=== PATIENT | male | born 1980 | race Caucasian/White ===

== ENCOUNTER 2017-09-15 14:13 | Inpatient (IN) | payer MEDICAID ==
[~2017-09-15] VITALS: Ht 182.9 cm; Wt 81.6 kg
[~2017-09-15 14:13] MED LIST: AMOX-559 PO; CLON0.1T14 PO; DUL100/5PT INH; HYDR50CA48 PO; LISI5TAB25 PO; METH-543 PO; METO25TA93 PO; MULT-1335 PO; MULT-1379 PO; NEOM1PAC11 TP; OXYC-865 PO; PRED-1 PO; TRAZ150T8 PO
[2017-09-15] MEDS ORDERED: MAG HYD/AL HYD/SIMETH 30ML UDC PO PRN (16:05)
[2017-09-15] MEDS: DIAZEPAM 20 MG PER CIWA PROTOCOL PO PRN ×4 (17:00→23:22)
[2017-09-15 17:02] VITALS: BP 120/110
[2017-09-15 19:28] VITALS: BP 125/100
--- NOTE | 2017-09-15 20:14 | BHS - Psychiatric Evaluation ---
ER - Title 25 MHE Evaluation Title 25 Evaluation Patient Detained By: Physician (Dr. Chowdhury) Referral Source: Professional: Dr. Chowdhury Date Patient Detained: Sep 15, 2017 Time Patient Detained: 12:50 Date Custodial Expires: Sep 18, 2017 Time Custodial Expires: 12:50 Legal Status: Police Hold: No Legal Status: Residence: [facility] Resident, State Resident Assessment Data Provided By: Patient, Other Source (ER Doctor) HPI/ROS: Patient arrives to the ER because he has had multiple seizures, collateral report of 1 seizure in [facility] yesterday and one seizure during release from [facility]. He was agitated in the ER and had an altered mental status. Admit due to SI or Attempt: No Suicide Plan: No Plan Alcohol or Drugs Involved: Yes Is Patient Info Reliable: No (Patient does not know why he is in the hospital not does he remeber coming to the hospital.) Is Collateral Info Reliable: Yes (Er Doctor noted decompensation and altered mental status.) Current Home Psych Meds: Unknown at this time. Mental Status Exam General Appearance: Casual, Well Groomed, Good Eye Contact Speech: Slurred Mood: Other Affect: Anxious, Agitated Thought Process: Other (Patient is confused.) Cognition: Alert & Oriented-Person, No Alert & Oriented-Place, No Alert & Oriented-Time, No Jqssg-Avlchpsd-Twkfvimnn Memory: Other (Does not remember a conversation with this examiner only minutes before. ) Insight Judgment: Poor Sleep: Hypersomnia Hallucinations: Denies Delusions: Denies Current Risk & History Current Dangerous Risk Assessm: Ubable to Care for Self Past Dangerous Risk Assessm: Self-Injurious Behaviors (Has dangerous withdrawal from alcohol intoxication) Prior Alcohol/Drug Abuse Has a demonstrated history of alcohol overuse. Previous Suicide Attempt: No Previous Attempt Previous Psychiatric Illness: Yes (required hospitalization earlier this year, and was in the ER only days ago.) Previous Psychiatric Treatment: Yes (Patient treated earlier this year for Alcohol Use Disorder-Severe.) Risk Assessment & Disposition Evaluated Risk Assessment: Risk Assessment is severe based on patient's inability to recognize with any reliability where he is or why he is in a hospital. Past electronic medical records indicate patient has left against medical advice in the past, and might leave again if he were not detained, and not be able to keep himself safe. He is severely decompensated. Meets Mental Illness Req.: Yes (Inability to care for self) Meets Dangerousness Req.: Yes (Not oriented to person, place, and situation and unable to care for his basic needs.) Emergency Custodial to be: Upheld Decision Comment: Patient is unsafe to be released. He does not know where he is or remember being in [facility] prior to coming to the ER. His mental status is altered, and he cannot care for himself. He does not recognize talking to this examiner only minutes before. He does not have awareness of why he is decompensated, and has no plan for safety that he can follow. He needs a structured environment until he becomes stable. Date of Decision: Sep 15, 2017 Time of Decision: 20:24 Patient is Medically Stable at: Yes Disposition: KATHERINE BARGER EMPLOYEE SERVICES MANAGER Sep 15, 2017 20:14
[2017-09-15] MEDS ORDERED: LOPERAMIDE HCL 2 MG CAP PO ONE (20:25)
[2017-09-15 23:00] VITALS: BP 159/89
[2017-09-15] MEDS: LOPERAMIDE HCL 2 MG CAP PO PRN (23:22)
[2017-09-16] MEDS: LOPERAMIDE HCL 2 MG CAP PO PRN (00:21)
[2017-09-16] MEDS: DIAZEPAM 20 MG PER CIWA PROTOCOL PO PRN ×4 (00:21→21:00)
[2017-09-16 03:10] VITALS: BP 140/95
[2017-09-16 08:05] VITALS: BP 130/100
[2017-09-16] MEDS: FOLIC ACID 1 MG TAB PO SCH (08:48)
[2017-09-16] MEDS: MULTIVITAMINS PO SCH (08:48)
[2017-09-16] MEDS: THIAMINE HCL 100 MG TAB PO SCH (08:49)
[2017-09-16 10:48] LABS: PLATELET COUNT, AUTOMATED 217 K/uL (150-450)
[2017-09-16] MEDS: AMOXICILLIN 500 MG CAP PO SCH ×2 (11:24→21:00)
[2017-09-16 11:26] VITALS: BP 130/90
[2017-09-16 16:15] VITALS: BP 134/99
[2017-09-16] MEDS ORDERED: METO25TA93 PO (17:14)
[2017-09-16] MEDS ORDERED: LISI5TAB25 PO (17:14)
[2017-09-16 20:25] VITALS: BP 122/85
[2017-09-17 00:13] VITALS: BP 108/76
[2017-09-17] MEDS: DIAZEPAM 20 MG PER CIWA PROTOCOL PO PRN ×2 (00:22→21:24)
[2017-09-17 09:27] VITALS: BP 130/70
[2017-09-17] MEDS: THIAMINE HCL 100 MG TAB PO SCH (09:39)
[2017-09-17] MEDS: MULTIVITAMINS PO SCH (09:39)
[2017-09-17] MEDS: FOLIC ACID 1 MG TAB PO SCH (09:39)
[2017-09-17] MEDS: AMOXICILLIN 500 MG CAP PO SCH ×2 (09:39→21:23)
[2017-09-17 12:00] VITALS: BP 138/96
--- NOTE | 2017-09-17 14:38 | BHS Progress Note ---
S - Subjective Progress Notes Subjective Patient remains under a alf, recovering from an episode of delirium and completing alcohol withdrawal. Mood stated as good, other than frustration with alcohol use disorder. Denies any other concerns, will continue treatment, cognition improving. Patient will start to work on ways to abstain upon discharge. Patient would meet criteria for residential treatment, but at this point does not wish to attend. Suicidal Ideation: None Homicidal Ideation: None S - Objective Physical Exam Vital Signs Vital Signs Date Time Temp Pulse Resp B/P (MAP) Pulse Ox O2 Delivery O2 Flow Rate FiO2 09/17/17 12:00 98.4 88 16 138/96 (110) 97 Room Air Hematology Test 09/16/17 10:40 Red Blood Count 4.93 M/uL (4.00-5.60) Mean Corpuscular Volume 94.7 fL (80.0-96.0) Mean Corpuscular Hemoglobin 33.3 pg (26.0-33.0) Mean Corpuscular Hemoglobin Concent 35.2 g/dL (32.0-36.0) Red Cell Distribution Width 15.7 % (11.5-14.5) Mean Platelet Volume 7.4 fL (7.2-11.1) Neutrophils (%) (Auto) 65.9 % (39.4-72.5) Lymphocytes (%) (Auto) 21.7 % (17.6-49.6) Monocytes (%) (Auto) 7.6 % (4.1-12.4) Eosinophils (%) (Auto) 3.7 % (0.4-6.7) Basophils (%) (Auto) 1.1 % (0.3-1.4) Nucleated RBC Relative Count (auto) 0.0 /100WBC Neutrophils # (Auto) 6.2 K/uL (2.0-7.4) Lymphocytes # (Auto) 2.0 K/uL (1.3-3.6) Monocytes # (Auto) 0.7 K/uL (0.3-1.0) Eosinophils # (Auto) 0.3 K/uL (0.0-0.5) Basophils # (Auto) 0.1 K/uL (0.0-0.1) Nucleated RBC Absolute Count (auto) 0.00 K/uL Sodium Level 141 mmol/L (137-145) Potassium Level 3.5 mmol/L (3.5-5.0) Chloride Level 105 mmol/L (98-107) Carbon Dioxide Level 28 mmol/L (22-30) Blood Urea Nitrogen 5 mg/dl (9-21) Creatinine 1.00 mg/dl (0.66-1.25) Glomerular Filtration Rate Calc > 60.0 Random Glucose 65 mg/dl (75-110) Calcium Level 9.7 mg/dl (8.4-10.2) Magnesium Level 1.9 mg/dl (1.7-2.2) Total Bilirubin 1.3 mg/dl (0.2-1.3) Aspartate Amino Transf (AST/SGOT) 52 U/L (0-35) Alanine Aminotransferase (ALT/SGPT) 52 U/L (0-56) Alkaline Phosphatase 83 U/L (0-126) Ammonia < 9 UMOL/L (9-33) Total Protein 6.6 gm/dl (6.3-8.2) Albumin 3.8 g/dl (3.5-5.0) Chemistry Test 09/16/17 10:40 White Blood Count 9.4 k/uL (4.5-11.0) Red Blood Count 4.93 M/uL (4.00-5.60) Hemoglobin 16.4 g/dL (14.0-18.0) Hematocrit 46.7 % (42.0-52.0) Mean Corpuscular Volume 94.7 fL (80.0-96.0) Mean Corpuscular Hemoglobin 33.3 pg (26.0-33.0) Mean Corpuscular Hemoglobin Concent 35.2 g/dL (32.0-36.0) Red Cell Distribution Width 15.7 % (11.5-14.5) Platelet Count 217 K/uL (150-450) Mean Platelet Volume 7.4 fL (7.2-11.1) Neutrophils (%) (Auto) 65.9 % (39.4-72.5) Lymphocytes (%) (Auto) 21.7 % (17.6-49.6) Monocytes (%) (Auto) 7.6 % (4.1-12.4) Eosinophils (%) (Auto) 3.7 % (0.4-6.7) Basophils (%) (Auto) 1.1 % (0.3-1.4) Nucleated RBC Relative Count (auto) 0.0 /100WBC Neutrophils # (Auto) 6.2 K/uL (2.0-7.4) Lymphocytes # (Auto) 2.0 K/uL (1.3-3.6) Monocytes # (Auto) 0.7 K/uL (0.3-1.0) Eosinophils # (Auto) 0.3 K/uL (0.0-0.5) Basophils # (Auto) 0.1 K/uL (0.0-0.1) Nucleated RBC Absolute Count (auto) 0.00 K/uL Glomerular Filtration Rate Calc > 60.0 Calcium Level 9.7 mg/dl (8.4-10.2) Magnesium Level 1.9 mg/dl (1.7-2.2) Total Bilirubin 1.3 mg/dl (0.2-1.3) Aspartate Amino Transf (AST/SGOT) 52 U/L (0-35) Alanine Aminotransferase (ALT/SGPT) 52 U/L (0-56) Alkaline Phosphatase 83 U/L (0-126) Ammonia < 9 UMOL/L (9-33) Total Protein 6.6 gm/dl (6.3-8.2) Albumin 3.8 g/dl (3.5-5.0) Muscle Strength and Tone: WNL Gait and Station: Steady [facility] Medications Reviewed: Side Effects, Benefits of Medication, Risks Allergies Reviewed: Yes Mental Status Exam General Appearance: Casual, Well Groomed, Good Eye Contact, Cooperative, Polite , Good Interaction, No Tearful, No Psychomotor Agitation, No Psychomotor Retardation, No Bizarre Mannerisms, No Tics Speech: Clear, Spontaneous, Normal Rate, Normal Rhythm, Normal Volume, Normal Tone, Slurred (improving) Mood: Euthymic Affect: Full and Appropriate (at times), Calm, No Flat, No Withdrawn, No Tearful, No Anxious, No Agitated Thought Process: Organized, Logical, Goal Directed, No Loose Associations, No Flight of Ideas Thought Content: No Suicidal Ideation, No Homicidal Ideation, No Delusions, No Auditory Halllucinations, No Visual Hallucinations, No Thought Broadcasting, No Ideas of Reference, No Obsessions, No Compulsions Sensorium: Clear Cognition: Alert & Oriented-Person, Alert & Oriented-Place, Alert & Oriented- Time, Bhnvf-Jusbwluq-Wdofzjxgw Memory: Immediate, Recent, Remote Intelligence: Average Insight Judgment: Poor (limited by recovery from delerium, and ongoing alcohol wiothdrawal. ) Result Diagram: 09/16/17 1040 09/16/17 1040 [facility] Assessment and Plan [facility] Plan: Necessary Precautions, Individual/Group Therapy, Admin/Titrate Meds, Educate Patient Tobacco Medications: Not Appropriate Condition Problems: (1) Alcohol withdrawal delirium Status: Acute (2) Alcohol withdrawal Status: Acute (3) Alcohol use disorder, severe, in controlled environment Status: Chronic Condition 1. continue treatment. 2. solidify future abstinence plans. Problem Qualifiers (1) Alcohol withdrawal: Complication of substance-induced condition: with delirium Qualified Codes: F10.231 - Alcohol dependence with withdrawal delirium NIRMALA WORTHY MD Sep 17, 2017 14:38
[2017-09-17] MEDS: traZODone HCL 50 MG TAB PO SCH (21:23)
[2017-09-17] MEDS: traMADol 50 MG TAB PO PRN (21:24)
[2017-09-18] VITALS (7 sets, daily range): BP systolic 112–153; BP diastolic 78–118
[2017-09-18] MEDS: traMADol 50 MG TAB PO PRN ×2 (07:41→17:17)
[2017-09-18] MEDS: THIAMINE HCL 100 MG TAB PO SCH (08:22)
[2017-09-18] MEDS: MULTIVITAMINS PO SCH (08:22)
[2017-09-18] MEDS: AMOXICILLIN 500 MG CAP PO SCH ×2 (08:22→20:57)
[2017-09-18] MEDS: FOLIC ACID 1 MG TAB PO SCH (08:22)
--- NOTE | 2017-09-18 08:46 | BHS Progress Note ---
S - Subjective Progress Notes Subjective Patient alcohol withdrawal nearing completion, interacting well, and delirium resolving. No other concerns, appetite and sleep improving. Suicidal Ideation: None Homicidal Ideation: None S - Objective Physical Exam Vital Signs Vital Signs Date Time Temp Pulse Resp B/P (MAP) Pulse Ox O2 Delivery O2 Flow Rate FiO2 09/18/17 06:23 97.9 93 112/78 (89) 98 Room Air 09/17/17 12:00 16 Hematology Test 09/16/17 10:40 Red Blood Count 4.93 M/uL (4.00-5.60) Mean Corpuscular Volume 94.7 fL (80.0-96.0) Mean Corpuscular Hemoglobin 33.3 pg (26.0-33.0) Mean Corpuscular Hemoglobin Concent 35.2 g/dL (32.0-36.0) Red Cell Distribution Width 15.7 % (11.5-14.5) Mean Platelet Volume 7.4 fL (7.2-11.1) Neutrophils (%) (Auto) 65.9 % (39.4-72.5) Lymphocytes (%) (Auto) 21.7 % (17.6-49.6) Monocytes (%) (Auto) 7.6 % (4.1-12.4) Eosinophils (%) (Auto) 3.7 % (0.4-6.7) Basophils (%) (Auto) 1.1 % (0.3-1.4) Nucleated RBC Relative Count (auto) 0.0 /100WBC Neutrophils # (Auto) 6.2 K/uL (2.0-7.4) Lymphocytes # (Auto) 2.0 K/uL (1.3-3.6) Monocytes # (Auto) 0.7 K/uL (0.3-1.0) Eosinophils # (Auto) 0.3 K/uL (0.0-0.5) Basophils # (Auto) 0.1 K/uL (0.0-0.1) Nucleated RBC Absolute Count (auto) 0.00 K/uL Sodium Level 141 mmol/L (137-145) Potassium Level 3.5 mmol/L (3.5-5.0) Chloride Level 105 mmol/L (98-107) Carbon Dioxide Level 28 mmol/L (22-30) Blood Urea Nitrogen 5 mg/dl (9-21) Creatinine 1.00 mg/dl (0.66-1.25) Glomerular Filtration Rate Calc > 60.0 Random Glucose 65 mg/dl (75-110) Calcium Level 9.7 mg/dl (8.4-10.2) Magnesium Level 1.9 mg/dl (1.7-2.2) Total Bilirubin 1.3 mg/dl (0.2-1.3) Aspartate Amino Transf (AST/SGOT) 52 U/L (0-35) Alanine Aminotransferase (ALT/SGPT) 52 U/L (0-56) Alkaline Phosphatase 83 U/L (0-126) Ammonia < 9 UMOL/L (9-33) Total Protein 6.6 gm/dl (6.3-8.2) Albumin 3.8 g/dl (3.5-5.0) Chemistry Test 09/16/17 10:40 White Blood Count 9.4 k/uL (4.5-11.0) Red Blood Count 4.93 M/uL (4.00-5.60) Hemoglobin 16.4 g/dL (14.0-18.0) Hematocrit 46.7 % (42.0-52.0) Mean Corpuscular Volume 94.7 fL (80.0-96.0) Mean Corpuscular Hemoglobin 33.3 pg (26.0-33.0) Mean Corpuscular Hemoglobin Concent 35.2 g/dL (32.0-36.0) Red Cell Distribution Width 15.7 % (11.5-14.5) Platelet Count 217 K/uL (150-450) Mean Platelet Volume 7.4 fL (7.2-11.1) Neutrophils (%) (Auto) 65.9 % (39.4-72.5) Lymphocytes (%) (Auto) 21.7 % (17.6-49.6) Monocytes (%) (Auto) 7.6 % (4.1-12.4) Eosinophils (%) (Auto) 3.7 % (0.4-6.7) Basophils (%) (Auto) 1.1 % (0.3-1.4) Nucleated RBC Relative Count (auto) 0.0 /100WBC Neutrophils # (Auto) 6.2 K/uL (2.0-7.4) Lymphocytes # (Auto) 2.0 K/uL (1.3-3.6) Monocytes # (Auto) 0.7 K/uL (0.3-1.0) Eosinophils # (Auto) 0.3 K/uL (0.0-0.5) Basophils # (Auto) 0.1 K/uL (0.0-0.1) Nucleated RBC Absolute Count (auto) 0.00 K/uL Glomerular Filtration Rate Calc > 60.0 Calcium Level 9.7 mg/dl (8.4-10.2) Magnesium Level 1.9 mg/dl (1.7-2.2) Total Bilirubin 1.3 mg/dl (0.2-1.3) Aspartate Amino Transf (AST/SGOT) 52 U/L (0-35) Alanine Aminotransferase (ALT/SGPT) 52 U/L (0-56) Alkaline Phosphatase 83 U/L (0-126) Ammonia < 9 UMOL/L (9-33) Total Protein 6.6 gm/dl (6.3-8.2) Albumin 3.8 g/dl (3.5-5.0) Muscle Strength and Tone: WNL Gait and Station: Steady [facility] Medications Reviewed: Side Effects, Benefits of Medication, Risks Allergies Reviewed: Yes Mental Status Exam General Appearance: Casual, Well Groomed, Good Eye Contact, Cooperative, Polite , Good Interaction, No Tearful, No Psychomotor Agitation, No Psychomotor Retardation, No Bizarre Mannerisms, No Tics Speech: Clear, Spontaneous, Normal Rate, Normal Rhythm, Normal Volume, Normal Tone, Slurred (improving) Mood: Euthymic Affect: Full and Appropriate (at times), Calm, No Flat, No Withdrawn, No Tearful, No Anxious, No Agitated Thought Process: Organized, Logical, Goal Directed, No Loose Associations, No Flight of Ideas Thought Content: No Suicidal Ideation, No Homicidal Ideation, No Delusions, No Auditory Halllucinations, No Visual Hallucinations, No Thought Broadcasting, No Ideas of Reference, No Obsessions, No Compulsions Sensorium: Clear Cognition: Alert & Oriented-Person, Alert & Oriented-Place, Alert & Oriented- Time, Ogjac-Dqyuuyyj-Khymvdrju Memory: Immediate, Recent, Remote Intelligence: Average Insight Judgment: Poor (limited by recovery from delerium, and ongoing alcohol wiothdrawal. ) Result Diagram: 09/16/17 1040 09/16/17 1040 S Assessment and Plan [facility] Plan: Necessary Precautions, Individual/Group Therapy, Admin/Titrate Meds, Educate Patient Tobacco Medications: Not Appropriate Condition Problems: (1) Alcohol withdrawal delirium Status: Acute (2) Alcohol withdrawal Status: Acute (3) Alcohol use disorder, severe, in controlled environment Status: Chronic Condition 1. continue treatment. 2. probable discharge tomorrow. Problem Qualifiers (1) Alcohol withdrawal: Complication of substance-induced condition: with delirium Qualified Codes: F10.231 - Alcohol dependence with withdrawal delirium NIRMALA WORTHY MD Sep 18, 2017 08:46
[2017-09-18] MEDS: DIAZEPAM 20 MG PER CIWA PROTOCOL PO PRN ×3 (11:23→17:17)
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
[2017-09-18] MEDS: traZODone HCL 50 MG TAB PO SCH (20:57)
[2017-09-19 06:22] VITALS: BP 103/70
[2017-09-19] MEDS: AMOXICILLIN 500 MG CAP PO SCH ×2 (08:19→20:34)
[2017-09-19] MEDS: FOLIC ACID 1 MG TAB PO SCH (08:19)
[2017-09-19] MEDS: MULTIVITAMINS PO SCH (08:19)
[2017-09-19] MEDS: THIAMINE HCL 100 MG TAB PO SCH (08:19)
--- NOTE | 2017-09-19 09:02 | BHS Progress Note ---
BHS - Subjective Progress Notes Subjective Patient cooperative, and interacting well with this provider and treatment team staff. Patient desires to sign in voluntarily today, and will continue to treat withdrawal and resolution of delirium. Will look into appropriate, and effective means to abstain from alcohol upon discharge, residential versus IOP or AA. No other concerns. Suicidal Ideation: None Homicidal Ideation: None BHS - Objective Physical Exam Vital Signs Vital Signs Date Time Temp Pulse Resp B/P (MAP) Pulse Ox O2 Delivery O2 Flow Rate FiO2 09/19/17 06:22 98.0 99 103/70 (81) 92 Room Air 09/18/17 13:15 18 Hematology Test 09/16/17 10:40 Red Blood Count 4.93 M/uL (4.00-5.60) Mean Corpuscular Volume 94.7 fL (80.0-96.0) Mean Corpuscular Hemoglobin 33.3 pg (26.0-33.0) Mean Corpuscular Hemoglobin Concent 35.2 g/dL (32.0-36.0) Red Cell Distribution Width 15.7 % (11.5-14.5) Mean Platelet Volume 7.4 fL (7.2-11.1) Neutrophils (%) (Auto) 65.9 % (39.4-72.5) Lymphocytes (%) (Auto) 21.7 % (17.6-49.6) Monocytes (%) (Auto) 7.6 % (4.1-12.4) Eosinophils (%) (Auto) 3.7 % (0.4-6.7) Basophils (%) (Auto) 1.1 % (0.3-1.4) Nucleated RBC Relative Count (auto) 0.0 /100WBC Neutrophils # (Auto) 6.2 K/uL (2.0-7.4) Lymphocytes # (Auto) 2.0 K/uL (1.3-3.6) Monocytes # (Auto) 0.7 K/uL (0.3-1.0) Eosinophils # (Auto) 0.3 K/uL (0.0-0.5) Basophils # (Auto) 0.1 K/uL (0.0-0.1) Nucleated RBC Absolute Count (auto) 0.00 K/uL Sodium Level 141 mmol/L (137-145) Potassium Level 3.5 mmol/L (3.5-5.0) Chloride Level 105 mmol/L (98-107) Carbon Dioxide Level 28 mmol/L (22-30) Blood Urea Nitrogen 5 mg/dl (9-21) Creatinine 1.00 mg/dl (0.66-1.25) Glomerular Filtration Rate Calc > 60.0 Random Glucose 65 mg/dl (75-110) Calcium Level 9.7 mg/dl (8.4-10.2) Magnesium Level 1.9 mg/dl (1.7-2.2) Total Bilirubin 1.3 mg/dl (0.2-1.3) Aspartate Amino Transf (AST/SGOT) 52 U/L (0-35) Alanine Aminotransferase (ALT/SGPT) 52 U/L (0-56) Alkaline Phosphatase 83 U/L (0-126) Ammonia < 9 UMOL/L (9-33) Total Protein 6.6 gm/dl (6.3-8.2) Albumin 3.8 g/dl (3.5-5.0) Chemistry Test 09/16/17 10:40 White Blood Count 9.4 k/uL (4.5-11.0) Red Blood Count 4.93 M/uL (4.00-5.60) Hemoglobin 16.4 g/dL (14.0-18.0) Hematocrit 46.7 % (42.0-52.0) Mean Corpuscular Volume 94.7 fL (80.0-96.0) Mean Corpuscular Hemoglobin 33.3 pg (26.0-33.0) Mean Corpuscular Hemoglobin Concent 35.2 g/dL (32.0-36.0) Red Cell Distribution Width 15.7 % (11.5-14.5) Platelet Count 217 K/uL (150-450) Mean Platelet Volume 7.4 fL (7.2-11.1) Neutrophils (%) (Auto) 65.9 % (39.4-72.5) Lymphocytes (%) (Auto) 21.7 % (17.6-49.6) Monocytes (%) (Auto) 7.6 % (4.1-12.4) Eosinophils (%) (Auto) 3.7 % (0.4-6.7) Basophils (%) (Auto) 1.1 % (0.3-1.4) Nucleated RBC Relative Count (auto) 0.0 /100WBC Neutrophils # (Auto) 6.2 K/uL (2.0-7.4) Lymphocytes # (Auto) 2.0 K/uL (1.3-3.6) Monocytes # (Auto) 0.7 K/uL (0.3-1.0) Eosinophils # (Auto) 0.3 K/uL (0.0-0.5) Basophils # (Auto) 0.1 K/uL (0.0-0.1) Nucleated RBC Absolute Count (auto) 0.00 K/uL Glomerular Filtration Rate Calc > 60.0 Calcium Level 9.7 mg/dl (8.4-10.2) Magnesium Level 1.9 mg/dl (1.7-2.2) Total Bilirubin 1.3 mg/dl (0.2-1.3) Aspartate Amino Transf (AST/SGOT) 52 U/L (0-35) Alanine Aminotransferase (ALT/SGPT) 52 U/L (0-56) Alkaline Phosphatase 83 U/L (0-126) Ammonia < 9 UMOL/L (9-33) Total Protein 6.6 gm/dl (6.3-8.2) Albumin 3.8 g/dl (3.5-5.0) Muscle Strength and Tone: WNL Gait and Station: Steady [facility] Medications Reviewed: Side Effects, Benefits of Medication, Risks Allergies Reviewed: Yes Mental Status Exam General Appearance: Casual, Well Groomed, Good Eye Contact, Cooperative, Polite , Good Interaction, No Tearful, No Psychomotor Agitation, No Psychomotor Retardation, No Bizarre Mannerisms, No Tics Speech: Clear, Spontaneous, Normal Rate, Normal Rhythm, Normal Volume, Normal Tone, Slurred (improving) Mood: Euthymic Affect: Full and Appropriate, Calm, No Flat, No Withdrawn, No Tearful, No Anxious, No Agitated Thought Process: Organized, Logical, Goal Directed, No Loose Associations, No Flight of Ideas Thought Content: No Suicidal Ideation, No Homicidal Ideation, No Delusions, No Auditory Halllucinations, No Visual Hallucinations, No Thought Broadcasting, No Ideas of Reference, No Obsessions, No Compulsions Sensorium: Clear Cognition: Alert & Oriented-Person, Alert & Oriented-Place, Alert & Oriented- Time, Roiqi-Wznruxdm-Yootzcskh Memory: Immediate, Recent, Remote Intelligence: Average Insight Judgment: Poor (limited by recovery from delerium, and ongoing alcohol wiothdrawal. ) Result Diagram: 09/16/17 1040 09/16/17 1040 [facility] Assessment and Plan [facility] Plan: Necessary Precautions, Individual/Group Therapy, Admin/Titrate Meds, Educate Patient Tobacco Medications: Not Appropriate Condition Problems: (1) Alcohol withdrawal delirium Status: Acute (2) Alcohol withdrawal Status: Acute (3) Alcohol use disorder, severe, in controlled environment Status: Chronic Condition 1. continue treatment. 2. patient will sign in voluntarily. 3. work on effective discharge plan to maintain sobriety Problem Qualifiers (1) Alcohol withdrawal: Complication of substance-induced condition: with delirium Qualified Codes: F10.231 - Alcohol dependence with withdrawal delirium NIRMALA WORTHY MD Sep 19, 2017 09:02
[2017-09-19 09:10] VITALS: BP 142/102
[2017-09-19 13:10] VITALS: BP 136/100
[2017-09-19] MEDS: OXYMETAZOLINE SPRAY 15 ML BTL ENA PRN (13:20)
[2017-09-19] MEDS: DIAZEPAM 20 MG PER CIWA PROTOCOL PO PRN (13:21)
[2017-09-19] MEDS: traMADol 50 MG TAB PO PRN (13:29)
[2017-09-19 16:15] VITALS: BP 138/112
--- NOTE | 2017-09-19 16:58 | EKG ---
[place] [facility] [place] NAME: NIRMALA FONSECA : [id number] MR: [id number] V: [id number] EXAM DATE: ORDERING PHYSICIAN: NIRMALA WORTHY TECHNOLOGIST: STORM Jewell Reason : CHEST PAIN Blood Pressure : / mmHG Vent. Rate : 085 BPM Atrial Rate : 085 BPM P-R Int : 142 ms QRS Dur : 108 ms QT Int : 376 ms P-R-T Axes : 058 084 070 degrees QTc Int : 447 ms Normal sinus rhythm Normal ECG When compared with ECG of 18-JUN-2017 00:47, Vent. rate has decreased BY 42 BPM T wave inversion no longer evident in Inferior leads Confirmed by FELY GOODE ([id number]) on 09/19/2017 8:33:23 PM Referred By: ZAYNAB Confirmed By:FELY GOODE
--- NOTE | 2017-09-19 17:27 | RADIOLOGY IMAGING REPORT ---
FACILITY: [facility] - [place] PATIENT NAME: Nirmala Mojica : 1980 MR: [id number] V: [id number] EXAM DATE: ORDERING PHYSICIAN: NIRMALA WORTHY TECHNOLOGIST: Location: [facility] [place] Patient: Nirmala Mojica : 1980 Visit/Account:[id number] Date of Sevice: 09/19/[address] scan without contrast COMPARISONS: Head CT scan without contrast dated September 15, 2017 ADDITIONAL PERTINENT HISTORY: Head pain with nausea and history of fall. TECHNIQUE: Multiple axial images were obtained from the skull base to the vertex without IV contrast . One of the following dose optimization techniques was utilized in the performance of this exam: Aut omated exposure control; adjustment of the mA and/or kV according to the patient's size; or use of an iterative reconstruction technique. Specific details can be referenced in the facility's radiology CT exam operational policy. FINDINGS: Midline shift: Negative Ventricles: Negative Brain parenchyma: Negative Extra-axial spaces: Negative Intracranial vasculature: Mild cavernous internal carotid artery calcifications. Otherwise negative Osseous structures: Negative Paranasal sinuses and mastoid air cells: Near-complete opacification of the maxillary sinuses, ethmo id air cells and frontal sinuses with mild mucosal thickening involving the sphenoid sinuses. Surrounding soft tissues and orbits: Improved but persistent left parietal scalp soft tissue hematom a. IMPRESSION: 1. No evidence of acute intracranial pathology. 2. Persistent underlying paranasal sinus disease. 3. Improved but persistent mild left parietal scalp soft tissue hematoma. Report Dictated By: Tomy Stubbs MD at 09/19/2017 5:20 PM Report E-Signed By: Tomy Stubbs MD at 09/19/2017 5:23 PM [id number]
[2017-09-19] MEDS: traZODone HCL 50 MG TAB PO SCH (20:34)
[2017-09-20 00:18] VITALS: BP 130/80
[2017-09-20] MEDS: OXYMETAZOLINE SPRAY 15 ML BTL ENA PRN ×2 (00:28→17:22)
[2017-09-20] MEDS: traMADol 50 MG TAB PO PRN ×3 (00:28→20:59)
[2017-09-20 08:12] VITALS: BP 123/98
[2017-09-20] MEDS: MULTIVITAMINS PO SCH (08:15)
[2017-09-20] MEDS: DIAZEPAM 20 MG PER CIWA PROTOCOL PO PRN ×9 (08:15→19:17)
[2017-09-20] MEDS: AMOXICILLIN 500 MG CAP PO SCH ×2 (08:15→20:59)
[2017-09-20] MEDS: FOLIC ACID 1 MG TAB PO SCH (08:15)
[2017-09-20] MEDS: THIAMINE HCL 100 MG TAB PO SCH (08:15)
--- NOTE | 2017-09-20 09:27 | BHS Progress Note ---
[facility] - Subjective Progress Notes Subjective "I've been through this a few times. I'm working on therapy and the seizure this time scared me. I've been drinking heavy for 22 years. I'm not ready to ." States continues to be at odds with girlfriend, Discuss outpatient substance abuse treatment options. Tremors improving, nausea improving, encourage po intake Reports urge to drink Previous AA attendance, denies IOP, residential treatment in past CIWA = 19 @ 0800, continue [facility] protocol for alcohol withdrawal Suicidal Ideation: None Homicidal Ideation: None S - Objective Physical Exam Muscle Strength and Tone: WNL Gait and Station: Steady [facility] Medications Reviewed: Side Effects, Benefits of Medication, Risks Allergies Reviewed: Yes Mental Status Exam General Appearance: Casual, Well Groomed, Good Eye Contact, Cooperative, Polite , Good Interaction, No Tearful, No Psychomotor Agitation, No Psychomotor Retardation, No Bizarre Mannerisms, No Tics Speech: Clear, Spontaneous, Normal Rate, Normal Rhythm, Normal Volume, Normal Tone, Slurred (improving) Mood: Dysthmic/Depressed, No Euthymic (Depression reported over current situation) Affect: Full and Appropriate, Calm, No Flat, No Withdrawn, No Tearful, No Anxious, No Agitated Thought Process: Organized, Logical, Goal Directed, No Loose Associations, No Flight of Ideas Thought Content: No Suicidal Ideation, No Homicidal Ideation, No Delusions, No Auditory Halllucinations, No Visual Hallucinations, No Thought Broadcasting, No Ideas of Reference, No Obsessions, No Compulsions Sensorium: Clear Cognition: Alert & Oriented-Person, Alert & Oriented-Place, Alert & Oriented- Time, Ylbbz-Gtkrdhjl-Isorgxyyc Memory: Immediate, Recent, Remote Intelligence: Average Insight Judgment: No Poor (limited by recovery from delerium, and ongoing alcohol wiothdrawal, discussion about outpatient treatment options), Fair Result Diagram: 09/16/17 1040 09/16/17 1040 Imaging Vital Signs Date Time Temp Pulse Resp B/P (MAP) Pulse Ox O2 Delivery O2 Flow Rate FiO2 09/20/17 00:18 97.0 84 130/80 (97) 93 Room Air 09/19/17 16:15 20 Allergies Coded Allergies aspirin (Verified Allergy, Severe, ANAPHYLAXIS, 09/15/17) ibuprofen (Verified Allergy, Severe, ANAPHYLAXIS, 09/15/17) [facility] Assessment and Plan [facility] Plan: Necessary Precautions, Individual/Group Therapy, Admin/Titrate Meds, Educate Patient Tobacco Medications: Not Appropriate Condition Problems: (1) Alcohol use disorder, severe, in controlled environment Status: Chronic (2) Alcohol withdrawal Status: Acute (3) Scalp contusion Status: Acute Condition Ongoing discussion regarding appropriate outpatient substance abuse treatment options Encourage AA, IOP, residential treatment options Problem Qualifiers (1) Alcohol withdrawal: Complication of substance-induced condition: with delirium Qualified Codes: F10.231 - Alcohol dependence with withdrawal delirium GISELLE ROUSE NP Sep 20, 2017 09:27
[2017-09-20 11:15] VITALS: BP 120/92
[2017-09-20 15:15] VITALS: BP 124/92
[2017-09-20] MEDS ORDERED: methylPREDNIS 4 MG TAB PO SCH (17:00)
[2017-09-20 20:13] VITALS: BP 129/89
[2017-09-20] MEDS: traZODone HCL 50 MG TAB PO SCH (20:59)
[2017-09-21 05:35] VITALS: BP 112/70
[2017-09-21] MEDS: traMADol 50 MG TAB PO PRN (05:58)
[2017-09-21 08:00] VITALS: BP 110/90
[2017-09-21] MEDS: DIAZEPAM 20 MG PER CIWA PROTOCOL PO PRN ×4 (08:31→17:24)
[2017-09-21] MEDS: MULTIVITAMINS PO SCH (08:31)
[2017-09-21] MEDS: THIAMINE HCL 100 MG TAB PO SCH (08:31)
[2017-09-21] MEDS: FOLIC ACID 1 MG TAB PO SCH (08:31)
[2017-09-21] MEDS: AMOXICILLIN 500 MG CAP PO SCH ×2 (08:32→21:22)
[2017-09-21] MEDS ORDERED: methylPREDNIS 4 MG TAB PO SCH ×2 (09:00→21:00)
--- NOTE | 2017-09-21 09:49 | BHS Progress Note ---
S - Subjective Progress Notes Subjective "Things are slowly getting better. After 22 years of drinking, it's not going to get better quickly," Meeting 09/20/17 with girlfriend with review of outpatient options. [place] this am 0800 = 16, tremor improving, occasional nausea Rating depression "3-4" 10 worst Agreeable with intensive outpatient program, AA Suicidal Ideation: None Homicidal Ideation: None BHS - Objective Physical Exam Muscle Strength and Tone: WNL Gait and Station: Steady [facility] Medications Reviewed: Side Effects, Benefits of Medication, Risks Allergies Reviewed: Yes Mental Status Exam General Appearance: Casual, Well Groomed, Good Eye Contact, Cooperative, Polite , Good Interaction, No Tearful, No Psychomotor Agitation, No Psychomotor Retardation, No Bizarre Mannerisms, No Tics Speech: Clear, Spontaneous, No Normal Rate, Normal Rhythm, Normal Volume, Normal Tone, Slurred (improving), Other (slowed) Mood: No Dysthmic/Depressed, Euthymic (Depression reported over current situation) Affect: Full and Appropriate, Calm, No Flat, No Withdrawn, No Tearful, No Anxious, No Agitated Thought Process: Organized, Logical, Goal Directed, No Loose Associations, No Flight of Ideas Thought Content: No Suicidal Ideation, No Homicidal Ideation, No Delusions, No Auditory Halllucinations, No Visual Hallucinations, No Thought Broadcasting, No Ideas of Reference, No Obsessions, No Compulsions Sensorium: Clear Cognition: Alert & Oriented-Person, Alert & Oriented-Place, Alert & Oriented- Time, Wbviq-Yweczepu-Hyfaqjdtu Memory: Immediate, Recent, Remote Intelligence: Average Insight Judgment: No Poor (limited by recovery from delerium, and ongoing alcohol wiothdrawal, discussion about outpatient treatment options), Fair Lab Vital Signs Date Time Temp Pulse Resp B/P (MAP) Pulse Ox O2 Delivery O2 Flow Rate FiO2 09/21/17 08:00 97.0 119 110/90 (97) 97 Room Air 09/19/17 16:15 20 Allergies Coded Allergies aspirin (Verified Allergy, Severe, ANAPHYLAXIS, 09/15/17) ibuprofen (Verified Allergy, Severe, ANAPHYLAXIS, 09/15/17) S Assessment and Plan [facility] Plan: Necessary Precautions, Individual/Group Therapy, Admin/Titrate Meds, Educate Patient Tobacco Medications: Not Appropriate Condition Problems: (1) Alcohol use disorder, severe, in controlled environment Status: Chronic (2) Alcohol withdrawal Status: Acute (3) Scalp contusion Status: Acute Condition Continue current medications, continue CIWA protocol for alcohol detoxification Review outpatient treatment options, declines residential treatment due to financial concerns Encourage IOP, AA Ongoing discharge planning, treatment team 09/22/17 Problem Qualifiers (1) Alcohol withdrawal: Complication of substance-induced condition: with delirium Qualified Codes: F10.231 - Alcohol dependence with withdrawal delirium GISELLE ROUSE NP Sep 21, 2017 09:49
[2017-09-21 10:40] VITALS: BP 100/82
[2017-09-21] MEDS ORDERED: DIAZEPAM 10 MG TAB PO ONE (10:45)
[2017-09-21 11:00] LABS: PLATELET COUNT, AUTOMATED 316 K/uL (150-450)
[2017-09-21] MEDS: methylPREDNIS 4 MG TAB PO SCH ×2 (11:19→17:00)
[2017-09-21 13:29] VITALS: BP 130/95
[2017-09-21 16:30] VITALS: BP 121/96
[2017-09-21 21:15] VITALS: BP 122/82
[2017-09-21] MEDS: traZODone HCL 50 MG TAB PO SCH (21:22)
[2017-09-22 01:45] VITALS: BP 104/66
[2017-09-22] MEDS: traMADol 50 MG TAB PO PRN ×3 (02:39→21:00)
[2017-09-22 08:00] VITALS: BP 140/89
[2017-09-22] MEDS ORDERED: DIAZEPAM 10 MG TAB PO ONE ×2 (08:10→10:25)
[2017-09-22] MEDS: FOLIC ACID 1 MG TAB PO SCH (08:18)
[2017-09-22] MEDS: AMOXICILLIN 500 MG CAP PO SCH ×2 (08:18→21:00)
[2017-09-22] MEDS: MULTIVITAMINS PO SCH (08:18)
[2017-09-22] MEDS: THIAMINE HCL 100 MG TAB PO SCH (08:18)
[2017-09-22] MEDS: methylPREDNIS 4 MG TAB PO SCH ×4 (08:18→21:00)
--- NOTE | 2017-09-22 09:08 | BHS Progress Note ---
S - Subjective Progress Notes Subjective Patient interacting well with his girlfriend and treatment team staff this AM, and continues to verbalize a desire to abstain from alcohol. Somewhat resistant to idea of residential treatment, but states he would go to [facility]. Alcohol withdrawal. delayed in nature, and still present, requiring diazepam. Delirium resolving, Sinusitis seems improved today, compared to last week. Lab work normalizing. Will continue treatment, and solidify outpatient plans. Suicidal Ideation: None Homicidal Ideation: None [facility] - Objective Physical Exam Vital Signs Vital Signs Date Time Temp Pulse Resp B/P (MAP) Pulse Ox O2 Delivery O2 Flow Rate FiO2 09/22/17 08:00 97.9 106 20 140/89 (106) 95 Room Air Hematology Test 09/16/17 10:40 09/19/17 16:45 09/21/17 10:45 09/22/17 05:41 Magnesium Level 1.9 mg/dl (1.7-2.2) Ammonia < 9 UMOL/L (9-33) Troponin I < 0.012 ng/ml Red Blood Count 5.05 M/uL (4.00-5.60) Mean Corpuscular Volume 96.3 fL (80.0-96.0) Mean Corpuscular Hemoglobin 33.5 pg (26.0-33.0) Mean Corpuscular Hemoglobin Concent 34.8 g/dL (32.0-36.0) Red Cell Distribution Width 15.7 % (11.5-14.5) Mean Platelet Volume 8.1 fL (7.2-11.1) Neutrophils (%) (Auto) 59.4 % (39.4-72.5) Lymphocytes (%) (Auto) 23.4 % (17.6-49.6) Monocytes (%) (Auto) 15.4 % (4.1-12.4) Eosinophils (%) (Auto) 1.3 % (0.4-6.7) Basophils (%) (Auto) 0.5 % (0.3-1.4) Nucleated RBC Relative Count (auto) 0.0 /100WBC Neutrophils # (Auto) 7.2 K/uL (2.0-7.4) Lymphocytes # (Auto) 2.9 K/uL (1.3-3.6) Monocytes # (Auto) 1.9 K/uL (0.3-1.0) Eosinophils # (Auto) 0.2 K/uL (0.0-0.5) Basophils # (Auto) 0.1 K/uL (0.0-0.1) Nucleated RBC Absolute Count (auto) 0.00 K/uL Peripheral Blood Smear Yes Y/N Sodium Level 138 mmol/L (137-145) Potassium Level 4.8 mmol/L (3.5-5.0) Chloride Level 105 mmol/L (98-107) Carbon Dioxide Level 24 mmol/L (22-30) Blood Urea Nitrogen 17 mg/dl (9-21) Creatinine 1.10 mg/dl (0.66-1.25) Glomerular Filtration Rate Calc > 60.0 Random Glucose 101 mg/dl (75-110) Calcium Level 9.8 mg/dl (8.4-10.2) Total Bilirubin 0.6 mg/dl (0.2-1.3) Aspartate Amino Transf (AST/SGOT) 50 U/L (0-35) Alanine Aminotransferase (ALT/SGPT) 110 U/L (0-56) Alkaline Phosphatase 97 U/L (0-126) Total Protein 7.1 gm/dl (6.3-8.2) Albumin 4.1 g/dl (3.5-5.0) Chemistry Test 09/16/17 10:40 09/19/17 16:45 09/21/17 10:45 09/22/17 05:41 Magnesium Level 1.9 mg/dl (1.7-2.2) Ammonia < 9 UMOL/L (9-33) Troponin I < 0.012 ng/ml White Blood Count 12.2 k/uL (4.5-11.0) Red Blood Count 5.05 M/uL (4.00-5.60) Hemoglobin 16.9 g/dL (14.0-18.0) Hematocrit 48.6 % (42.0-52.0) Mean Corpuscular Volume 96.3 fL (80.0-96.0) Mean Corpuscular Hemoglobin 33.5 pg (26.0-33.0) Mean Corpuscular Hemoglobin Concent 34.8 g/dL (32.0-36.0) Red Cell Distribution Width 15.7 % (11.5-14.5) Platelet Count 316 K/uL (150-450) Mean Platelet Volume 8.1 fL (7.2-11.1) Neutrophils (%) (Auto) 59.4 % (39.4-72.5) Lymphocytes (%) (Auto) 23.4 % (17.6-49.6) Monocytes (%) (Auto) 15.4 % (4.1-12.4) Eosinophils (%) (Auto) 1.3 % (0.4-6.7) Basophils (%) (Auto) 0.5 % (0.3-1.4) Nucleated RBC Relative Count (auto) 0.0 /100WBC Neutrophils # (Auto) 7.2 K/uL (2.0-7.4) Lymphocytes # (Auto) 2.9 K/uL (1.3-3.6) Monocytes # (Auto) 1.9 K/uL (0.3-1.0) Eosinophils # (Auto) 0.2 K/uL (0.0-0.5) Basophils # (Auto) 0.1 K/uL (0.0-0.1) Nucleated RBC Absolute Count (auto) 0.00 K/uL Peripheral Blood Smear Yes Y/N Glomerular Filtration Rate Calc > 60.0 Calcium Level 9.8 mg/dl (8.4-10.2) Total Bilirubin 0.6 mg/dl (0.2-1.3) Aspartate Amino Transf (AST/SGOT) 50 U/L (0-35) Alanine Aminotransferase (ALT/SGPT) 110 U/L (0-56) Alkaline Phosphatase 97 U/L (0-126) Total Protein 7.1 gm/dl (6.3-8.2) Albumin 4.1 g/dl (3.5-5.0) Muscle Strength and Tone: WNL Gait and Station: Steady [facility] Medications Reviewed: Side Effects, Benefits of Medication, Risks Allergies Reviewed: Yes Mental Status Exam General Appearance: Casual, Well Groomed, Good Eye Contact, Cooperative, Polite , Good Interaction, No Tearful, No Psychomotor Agitation, No Psychomotor Retardation, No Bizarre Mannerisms, No Tics Speech: Clear, Spontaneous, No Normal Rate, Normal Rhythm, Normal Volume, Normal Tone, Slurred (improving), Other (slowed) Mood: No Dysthmic/Depressed, Euthymic (Depression reported over current situation) Affect: Full and Appropriate, Calm, No Flat, No Withdrawn, No Tearful, No Anxious, No Agitated Thought Process: Organized, Logical, Goal Directed, No Loose Associations, No Flight of Ideas Thought Content: No Suicidal Ideation, No Homicidal Ideation, No Delusions, No Auditory Halllucinations, No Visual Hallucinations, No Thought Broadcasting, No Ideas of Reference, No Obsessions, No Compulsions Sensorium: Clear Cognition: Alert & Oriented-Person, Alert & Oriented-Place, Alert & Oriented- Time, Uhkks-Rnfzjheu-Dxwwmojeg Memory: Immediate, Recent, Remote Intelligence: Average Insight Judgment: No Poor (limited by recovery from delerium, and ongoing alcohol wiothdrawal, discussion about outpatient treatment options), Fair Result Diagram: 09/21/17 1045 09/22/17 0541 [facility] Assessment and Plan [facility] Plan: Necessary Precautions, Individual/Group Therapy, Admin/Titrate Meds, Educate Patient Tobacco Medications: Not Appropriate Condition Problems: (1) Alcohol withdrawal delirium Status: Acute (2) Alcohol withdrawal Status: Acute (3) Alcohol use disorder, severe, in controlled environment Status: Chronic Condition 1. continue treatment. 2. solidify outpatient treatment, verses residential rehab Problem Qualifiers (1) Alcohol withdrawal: Complication of substance-induced condition: with delirium Qualified Codes: F10.231 - Alcohol dependence with withdrawal delirium NIRMALA WORTHY MD Sep 22, 2017 09:08
[2017-09-22 10:17] VITALS: BP 135/90
[2017-09-22 12:23] VITALS: BP 130/78
[2017-09-22] MEDS: DIAZEPAM 20 MG PER CIWA PROTOCOL PO PRN ×2 (12:51→21:00)
[2017-09-22 15:44] VITALS: BP 110/80
[2017-09-22 18:02] VITALS: BP 120/92
[2017-09-22 20:01] LABS: PLATELET COUNT, AUTOMATED 356 K/uL (150-450)
[2017-09-22] MEDS: traZODone HCL 50 MG TAB PO SCH (21:00)
[2017-09-23 03:10] VITALS: BP 120/82
[2017-09-23 07:55] VITALS: BP 110/82
[2017-09-23] MEDS: FOLIC ACID 1 MG TAB PO SCH (08:27)
[2017-09-23] MEDS: AMOXICILLIN 500 MG CAP PO SCH (08:27)
[2017-09-23] MEDS: MULTIVITAMINS PO SCH (08:27)
[2017-09-23] MEDS: methylPREDNIS 4 MG TAB PO SCH ×2 (08:27→20:47)
[2017-09-23] MEDS: THIAMINE HCL 100 MG TAB PO SCH (08:28)
[2017-09-23] MEDS: traMADol 50 MG TAB PO PRN ×2 (09:03→20:47)
--- NOTE | 2017-09-23 09:19 | BHS Progress Note ---
BHS - Subjective Progress Notes Subjective Patient feeling much improved today. Alcohol withdrawal nearing completion. Delerium is nearly resolved. Mood good today, patient contemplating going to residential treatment for alcohol. will solidify plans for upcoming discharge, no other complaints. Suicidal Ideation: None Homicidal Ideation: None [facility] - Objective Physical Exam Vital Signs Vital Signs Date Time Temp Pulse Resp B/P (MAP) Pulse Ox O2 Delivery O2 Flow Rate FiO2 09/23/17 07:55 97.6 115 16 110/82 (91) 92 Room Air 115 Hematology Test 09/16/17 10:40 09/19/17 16:45 09/21/17 10:45 09/22/17 05:41 Magnesium Level 1.9 mg/dl (1.7-2.2) Ammonia < 9 UMOL/L (9-33) Troponin I < 0.012 ng/ml Peripheral Blood Smear Yes Y/N Sodium Level 138 mmol/L (137-145) Potassium Level 4.8 mmol/L (3.5-5.0) Chloride Level 105 mmol/L (98-107) Carbon Dioxide Level 24 mmol/L (22-30) Blood Urea Nitrogen 17 mg/dl (9-21) Creatinine 1.10 mg/dl (0.66-1.25) Glomerular Filtration Rate Calc > 60.0 Random Glucose 101 mg/dl (75-110) Calcium Level 9.8 mg/dl (8.4-10.2) Total Bilirubin 0.6 mg/dl (0.2-1.3) Aspartate Amino Transf (AST/SGOT) 50 U/L (0-35) Alanine Aminotransferase (ALT/SGPT) 110 U/L (0-56) Alkaline Phosphatase 97 U/L (0-126) Total Protein 7.1 gm/dl (6.3-8.2) Albumin 4.1 g/dl (3.5-5.0) Test 09/22/17 19:50 Red Blood Count 5.03 M/uL (4.00-5.60) Mean Corpuscular Volume 96.6 fL (80.0-96.0) Mean Corpuscular Hemoglobin 33.4 pg (26.0-33.0) Mean Corpuscular Hemoglobin Concent 34.6 g/dL (32.0-36.0) Red Cell Distribution Width 15.6 % (11.5-14.5) Mean Platelet Volume 8.0 fL (7.2-11.1) Neutrophils (%) (Auto) 53.3 % (39.4-72.5) Lymphocytes (%) (Auto) 28.5 % (17.6-49.6) Monocytes (%) (Auto) 16.4 % (4.1-12.4) Eosinophils (%) (Auto) 0.6 % (0.4-6.7) Basophils (%) (Auto) 1.2 % (0.3-1.4) Nucleated RBC Relative Count (auto) 0.1 /100WBC Neutrophils # (Auto) 5.9 K/uL (2.0-7.4) Lymphocytes # (Auto) 3.1 K/uL (1.3-3.6) Monocytes # (Auto) 1.8 K/uL (0.3-1.0) Eosinophils # (Auto) 0.1 K/uL (0.0-0.5) Basophils # (Auto) 0.1 K/uL (0.0-0.1) Nucleated RBC Absolute Count (auto) 0.02 K/uL Chemistry Test 09/16/17 10:40 09/19/17 16:45 09/21/17 10:45 09/22/17 05:41 Magnesium Level 1.9 mg/dl (1.7-2.2) Ammonia < 9 UMOL/L (9-33) Troponin I < 0.012 ng/ml Peripheral Blood Smear Yes Y/N Glomerular Filtration Rate Calc > 60.0 Calcium Level 9.8 mg/dl (8.4-10.2) Total Bilirubin 0.6 mg/dl (0.2-1.3) Aspartate Amino Transf (AST/SGOT) 50 U/L (0-35) Alanine Aminotransferase (ALT/SGPT) 110 U/L (0-56) Alkaline Phosphatase 97 U/L (0-126) Total Protein 7.1 gm/dl (6.3-8.2) Albumin 4.1 g/dl (3.5-5.0) Test 09/22/17 19:50 White Blood Count 11.0 k/uL (4.5-11.0) Red Blood Count 5.03 M/uL (4.00-5.60) Hemoglobin 16.8 g/dL (14.0-18.0) Hematocrit 48.6 % (42.0-52.0) Mean Corpuscular Volume 96.6 fL (80.0-96.0) Mean Corpuscular Hemoglobin 33.4 pg (26.0-33.0) Mean Corpuscular Hemoglobin Concent 34.6 g/dL (32.0-36.0) Red Cell Distribution Width 15.6 % (11.5-14.5) Platelet Count 356 K/uL (150-450) Mean Platelet Volume 8.0 fL (7.2-11.1) Neutrophils (%) (Auto) 53.3 % (39.4-72.5) Lymphocytes (%) (Auto) 28.5 % (17.6-49.6) Monocytes (%) (Auto) 16.4 % (4.1-12.4) Eosinophils (%) (Auto) 0.6 % (0.4-6.7) Basophils (%) (Auto) 1.2 % (0.3-1.4) Nucleated RBC Relative Count (auto) 0.1 /100WBC Neutrophils # (Auto) 5.9 K/uL (2.0-7.4) Lymphocytes # (Auto) 3.1 K/uL (1.3-3.6) Monocytes # (Auto) 1.8 K/uL (0.3-1.0) Eosinophils # (Auto) 0.1 K/uL (0.0-0.5) Basophils # (Auto) 0.1 K/uL (0.0-0.1) Nucleated RBC Absolute Count (auto) 0.02 K/uL Muscle Strength and Tone: WNL Gait and Station: Steady S Medications Reviewed: Side Effects, Benefits of Medication, Risks Allergies Reviewed: Yes Mental Status Exam General Appearance: Casual, Well Groomed, Good Eye Contact, Cooperative, Polite , Good Interaction, No Tearful, No Psychomotor Agitation, No Psychomotor Retardation, No Bizarre Mannerisms, No Tics Speech: Clear, Spontaneous, Normal Rate, Normal Rhythm, Normal Volume, Normal Tone, Other (slowed) Mood: No Dysthmic/Depressed, Euthymic (Depression reported over current situation) Affect: Full and Appropriate, Calm, No Flat, No Withdrawn, No Tearful, No Anxious, No Agitated Thought Process: Organized, Logical, Goal Directed, No Loose Associations, No Flight of Ideas Thought Content: No Suicidal Ideation, No Homicidal Ideation, No Delusions, No Auditory Halllucinations, No Visual Hallucinations, No Thought Broadcasting, No Ideas of Reference, No Obsessions, No Compulsions Sensorium: Clear Cognition: Alert & Oriented-Person, Alert & Oriented-Place, Alert & Oriented- Time, [id number]-[id number] Memory: Immediate, Recent, Remote Intelligence: Average Insight Judgment: Fair (severity of alcohol dependence is concerning. ) Result Diagram: 09/22/17 1950 09/22/17 0541 [facility] Assessment and Plan [facility] Plan: Necessary Precautions, Individual/Group Therapy, Admin/Titrate Meds, Educate Patient Tobacco Medications: Not Appropriate Condition Problems: (1) Alcohol withdrawal delirium Status: Acute (2) Alcohol withdrawal Status: Acute (3) Alcohol use disorder, severe, in controlled environment Status: Chronic Problem Qualifiers (1) Alcohol withdrawal: Complication of substance-induced condition: with delirium Qualified Codes: F10.231 - Alcohol dependence with withdrawal delirium NIRMALA WORTHY MD Sep 23, 2017 09:19
[2017-09-23 11:17] VITALS: BP 130/98
[2017-09-23] MEDS ORDERED: methylPREDNIS 4 MG TAB PO SCH (12:00)
[2017-09-23 14:23] VITALS: BP 124/98
[2017-09-23 16:08] VITALS: BP 126/92
[2017-09-23 18:14] VITALS: BP 122/96
[2017-09-23] MEDS: traZODone HCL 50 MG TAB PO SCH (20:47)
[2017-09-24 04:29] VITALS: BP 111/85
[2017-09-24 07:30] VITALS: BP 136/80
[2017-09-24] MEDS: THIAMINE HCL 100 MG TAB PO SCH (08:09)
[2017-09-24] MEDS: FOLIC ACID 1 MG TAB PO SCH (08:09)
[2017-09-24] MEDS: MULTIVITAMINS PO SCH (08:09)
[2017-09-24] MEDS ORDERED: methylPREDNIS 4 MG TAB PO SCH ×3 (09:00→21:00)
[2017-09-24 10:55] VITALS: BP 124/78
[2017-09-24] MEDS ORDERED: FOLI-68 PO (12:30)
[2017-09-24] MEDS ORDERED: METH4TAB57 PO (12:36)
[2017-09-24] MEDS ORDERED: THIA100T62 PO (12:40)
[2017-09-24] MEDS ORDERED: OXYM15MI14 ENA (12:41)
[2017-09-25] MEDS ORDERED: methylPREDNIS 4 MG TAB PO SCH (09:00)
--- NOTE | 2017-10-29 14:48 | SCHAAF DISCHARGE ---
DATE OF ADMISSION: 09/15/17 DATE OF DISCHARGE: 09/24/17 FINAL DIAGNOSES PER DSM-V Alcohol withdrawal delirium, resolved. Alcohol use disorder severe. Stressors related to alcoholism. Legal and employment barriers. Medical stressors related to alcoholism. Recovering from delirium and detriment to hepatic functioning. REASON FOR ADMISSION This is a 37-year-old male who is getting fairly well known here at [facility]. Patient was last on the unit June 25 to June 26, 2017, when he discharged against medical advice. Patient was notably in the ER on August for alcohol intoxication and subsequent group home clearance. Patient was transferred to the group home at that time. During patient's group home stay, the patient was experiencing alcohol withdrawal, culminating in seizures and delirium tremens. Patient was then discharged from group home, noted to have another seizure, was brought to the emergency room for evaluation. During evaluation in the emergency room the patient did not want to be admitted for alcohol withdrawal, however, ER physician found patient to be in a state of delirium, having no idea where he was. Patient was then emergency detained, brought to [facility]. Alcohol withdrawal was treated to completion and was delayed in nature. Patient remained delirious, slowly resolving over the course of his stay. Once emergency detainment the patient was able to recognize that delirium and ongoing delayed alcohol withdrawal was still problematic. Patient was noted to sign in voluntarily. Patient stayed until alcohol withdrawal and delirium had sufficiently resolved and was discharged on September 24. Patient was once again encouraged strongly to go into residential rehab. Patient ultimately declining. Patient did agree to go to [facility] for intensive outpatient treatment. Please see H and P for further details. PHYSICAL EXAMINATION GENERAL: Please see emergency room note. Notable for a 37-year-old male experiencing delirium tremens and in a postictal state at the time of admission. VITAL SIGNS: Showed temperature 98.7, pulse 126, respiratory rate 22, blood pressure 135/95, pulse oximetry 92 on room air. At the time of discharge from [facility] Unit vital signs showed a temperature of 97.3, pulse 113, respiratory rate 18, blood pressure 124/78 and pulse oximetry 94 on room air. LABORATORY DATA On September 22, 2017, most recent CBC showed MCV and MCH elevated at 96.6 and 33.4. Platelet count at 356,000. Chemistry panel on September 22, indicated AST elevated at 50, ALT elevated at 110 and normal bilirubin. Troponins were found to be negative as was ammonia level while the patient was on the unit, coming out of delirium, and at the time of admission toxicology screen was unremarkable. Nondetectable serum alcohol level with a TSH of 3.58. MENTAL STATUS EXAMINATION AT THE TIME OF DISCHARGE GENERAL APPEARANCE, BEHAVIOR AND ATTITUDE: This is a polite, cooperative 37- year-old male interacting well with this provider and behavioral team staff. No psychomotor agitation or retardation. No bizarre mannerisms or tics. No periods of tearfulness. SPEECH: Within normal limits, regular rate, rhythm volume and tone. MOOD: Described as good. AFFECT: Full and bright. THOUGHT PROCESSES: Logical, goal directed. No loose associations or flight of ideas. THOUGHT CONTENT: Free of auditory or visual hallucinations, ideas of reference , thought broadcastings, delusions, obsessions, compulsions. Patient adamantly denying suicidal or homicidal ideation. SENSORIUM: Clear. COGNITION: Alert and oriented to person, place, time and situation. MEMORY: Immediate, recent and remote estimated grossly intact. INTELLIGENCE: Average based on interview. INSIGHT AND JUDGMENT: Lingering delirium symptoms ongoing, however, mostly resolved and insight and judgment considered intact in the absence of alcohol use. RESULTS OF TESTING IMAGING: Please see electronic record for imaging which included a CT of the head which was remarkable for scalp hematoma as well as significant sinusitis. LABORATORY DATA: See above. CONSULTATIONS: None. TREATMENT Patient received medications, participated in individual and group therapy. HOSPITAL COURSE This patient, who was initially emergency detained, notably signed in voluntarily after emergency detainment due to patient's recognizing his own delirium and ongoing alcohol withdrawal. Patient took an active role in his treatment overall. Unfortunately deciding not to go to residential treatment which he is very much in need of, but patient did agree to go to intensive outpatient treatment at [facility]. Patient's alcohol withdrawal was treated to completion. Patient was given PCN and steroid pack for sinusitis. Patient continued to improve. CONDITION OF PATIENT ON DISCHARGE Stable. Considered a minimal risk to himself or others, appropriate for outpatient care in the absence of alcohol use. DISPOSITION Patient discharged to home. Again residential treatment was strongly encouraged. Patient would attend [facility], attend AA and obtain a sponsor. Patient would follow up with primary care provider for chronic sinusitis and nasal polyps. Crisis line was given should symptoms return. MEDICATIONS AT THE TIME OF DISCHARGE 1. Trazodone 150-300 mg p.o. at bedtime p.r.n. for insomnia. 2. Folic acid 1 mg over the counter daily. 3. Patient would finish remainder of tapering Medrol pack. Medications were given by hospital pharmacy. 4. Multivitamin with minerals daily. 5. Vitamin B1 100 mg daily. 6. Patient can use over the counter nasal decongestant as needed. Risks, benefits and alternatives of above discharge plan were discussed. Informed consent was given to proceed with above discharge plan by this patient and patient's girlfriend. <Electronically signed by NIRMALA WORTHY MD> D/ [id number] JENNIFER/JOSTIN CC: NIRMALA WORTHY MD MTDD
== END 2017-09-24 13:00 | disposition home or self-care (01) | DRG 897 ==
LOC: BHS 14:13
PROVIDERS: ADMIT Psychiatry & Neurology Psychiatry; ATTEND Psychiatry & Neurology Psychiatry
DX: F10.231 Alcohol dependence with withdrawal delirium (principal); E87.6 Hypokalemia; R56.9 Unspecified convulsions; S00.03XA Contusion of scalp, initial encounter; F32.9 Major depressive disorder, single episode, unspecified; J45.909 Unspecified asthma, uncomplicated; K21.9 Gastro-esophageal reflux disease without esophagitis; Y90.0 Blood alcohol level of less than 20 mg/100 ml; Y04.0XXA Assault by unarmed brawl or fight, initial encounter; Z81.1 Family history of alcohol abuse and dependence; Z81.2 Family history of tobacco abuse and dependence; Z56.0 Unemployment, unspecified; Z87.891 Personal history of nicotine dependence
CPT/HCPCS: 36415; 70450; 80320; 80329; 82040; 82140; 82247; 82310; 82374; 82435; 82565; 82947; 83735; 84075; 84132; 84155; 84295; 84443; 84450; 84460; 84484; 84520; 85025; 90853; 93005; 96361; 96365; 96375; 96376; 99285; J2060; J3411; J7030; J7509